=== PATIENT | male | born 1990 | race Caucasian/White ===

== ENCOUNTER 2018-02-23 07:58 | Emergency (ER) | payer OTHER ==
[~2018-02-23] VITALS: Ht 162.6 cm; Wt 42.7 kg
[~2018-02-23 07:58] MED LIST: NOHOMEMEDS
[2018-02-23 09:11] LABS: HEMATOCRIT 46.7 % (38.0-50.0); HEMOGLOBIN 16.4 G/DL (12.5-16.6); MCH 29.5 PG (29.0-34.0); MCHC 35.1 G/DL (30.0-36.0); PLATELET COUNT 248 K/uL (156-360); RBC DIS.WIDTH-SD 36.6 % (39-53); RED BLOOD COUNT 5.56 M/uL (4.00-5.50); WHITE BLOOD COUNT 13.5 K/uL (4.1-10.2)
[2018-02-23 09:19] LABS: ALBUMIN 5.3 g/dL (3.2-4.8); CHLORIDE 101 mEq/L (99-109); POTASSIUM 4.2 mEq/L (3.7-5.4); SODIUM 140 mEq/L (136-147)
[2018-02-23 09:22] LABS: GLUCOSE 141 mg/dL (70-99); TOTAL PROTEIN 9.1 g/dL (6.4-8.3)
[2018-02-23 09:24] LABS: TOTAL BILIRUBIN 1.3 mg/dL (0.0-1.0)
[2018-02-23 09:25] LABS: ALKALINE PHOSPHATASE 91 IU/L (3-129)
[2018-02-23 09:26] LABS: CREATININE 1.2 mg/dL (0.6-1.3); GFR ESTIMATE (CALCULATED) > 59 mL/min/ (58.99-99999)
[2018-02-23 09:27] LABS: AST (GOT) 59 IU/L (2-34); DIRECT BILIRUBIN 0.4 mg/dL (0.0-0.3); UREA NITROGEN (BUN) 22 mg/dL (9-23)
[2018-02-23 09:28] LABS: ALT (GPT) 48 IU/L (3-49)
[2018-02-23 09:29] LABS: LIPASE 20 U/L (1.0-51.0)
[2018-02-23 10:23] LABS: APPEARANCE CLEAR ((CLEAR)); BILIRUBIN NEGATIVE; BLOOD NEGATIVE; COLOR YELLOW ((YELLOW)); GLUCOSE (STRIP) NEGATIVE; KETONES 20; LEUKOCYTES NEGATIVE; NITRITE NEGATIVE; PROTEIN (STRIP) 30; UCUL ADDED? NO; UROBILINOGEN 0.2 MG/DL (0.2-1.0)
[2018-02-23 10:24] LABS: SPECIFIC GRAVITY > 1.060 (1.000-1.030)
[2018-02-23] MEDS ORDERED: ZOFRAN4 MG PO (11:30)
[2018-02-23 11:51] VITALS: BP 104/73
== END 2018-02-23 11:53 | disposition home or self-care (01) ==
LOC: EME 07:58
PROVIDERS: Emergency Medicine
DX: R10.11 Right upper quadrant pain (principal); R11.2 Nausea with vomiting, unspecified; E86.0 Dehydration; G89.29 Other chronic pain; Z85.028 Personal history of other malignant neoplasm of stomach
CPT/HCPCS: 74177; 76705; 80048; 80076; 81003; 83690; 85027; 99281; 99285; J2270; J2405; J7030